=== PATIENT | male | born 1940 | race Caucasian/White ===

== ENCOUNTER → 2017-01-08 | Outpatient (CLI) | payer OTHER ==
[~2017-01-08] MED LIST: ASPIR LOW81 MG PO; B12,B-12,B 12500 MC1 PO; CIPROFLOXACIN500 MG PO; FLAGYL500 MG PO; GLUCOPHAGE1000 MG PO; HYDROCODONE BIT1 T11 PO; IBU800 MG PO; IRON325 M1 PO; LIPITOR40 MG PO; NATURE'S BLEND F1 MG PO; PAXIL20 M1 PO; PLAVIX75 M1 PO; ULTRAM50 MG PO; ZOCOR40 MG PO; ZOVIRAX400 MG PO
== END | disposition home or self-care (01) ==
LOC: RAD 15:54
DX: M16.12 Unilateral primary osteoarthritis, left hip (principal); M25.552 Pain in left hip; M54.5 Low back pain

== ENCOUNTER → 2017-04-26 | Outpatient (CLI) | payer OTHER | END | disposition home or self-care (01) | LOC: ORTHO 02:16 | DX: M47.896 Other spondylosis, lumbar region (principal); M43.16 Spondylolisthesis, lumbar region ==

== ENCOUNTER → 2017-06-04 | Outpatient (CLI) | payer OTHER | END | disposition home or self-care (01) | LOC: MRI 14:59 | DX: M48.06 Spinal stenosis, lumbar region (principal); M51.27 Other intervertebral disc displacement, lumbosacral region ==

== ENCOUNTER → 2017-11-27 | Outpatient (CLI) | payer OTHER | END | disposition home or self-care (01) | LOC: RAD 15:19 | DX: I51.7 Cardiomegaly (principal); M54.9 Dorsalgia, unspecified ==

== ENCOUNTER → 2017-12-11 | Outpatient (CLI) | payer OTHER | END | disposition home or self-care (01) | LOC: CARD 12-07 08:30 | DX: I07.1 Rheumatic tricuspid insufficiency (principal) ==

== ENCOUNTER → 2018-10-31 | Outpatient (CLI) | payer OTHER | END | disposition home or self-care (01) | LOC: RAD 16:02 | DX: I51.7 Cardiomegaly (principal) ==

== ENCOUNTER 2022-03-08 19:49 | Emergency (ER) | payer OTHER ==
[~2022-03-08] VITALS: Wt 93.4 kg
[~2022-03-08 19:49] MED LIST changes: +JARDIANCE10 MG PO; +LISINOPRIL10 M1 PO; +METOPROLOL TART50 M1 PO; +VITAMIN D350 MCG PO; +XARE20MG PO
[2022-03-08 20:09] LABS: BASO % 0.6 % (0.0-1.0); EOS # 0.2 10*3/uL (0.0-0.4); EOS % 3.6 % (1.0-4.0); HEMATOCRIT 38.6 % (42.0-52.0); LYMPH % 30.4 % (27.0-41.0); MEAN CELL VOLUME 93.7 fl (80.0-94.0); MEAN CORPUSCULAR HGB 31.6 pg (27.0-31.0); MEAN CORPUSCULAR HGB CONC 33.7 g/dl (33.0-37.0); MEAN PLATELET VOLUME 9.9 fl (9.6-12.3); MONO # 0.6 10*3/uL (0.1-1.0); MONO % 9.2 % (3.0-9.0); NEUT # 3.7 10*3/uL (2.3-7.9); NEUT % 55.5 % (47.0-73.0); PLATELET COUNT AUTOMATED 235 10*3/uL (130-400); RED BLOOD COUNT 4.12 10*6/uL (4.50-5.90); RED CELL DISTRI WIDTH 14.7 % (0-14.5); WHITE BLOOD COUNT 6.7 10*3/uL (4.8-10.8)
[2022-03-08 20:22] LABS: CREATININE 1.82 mg/dL (0.70-1.30); POTASSIUM 5.3 mmol/L (3.5-5.1)
[2022-03-08 22:01] LABS: BILIRUBIN Negative (Negative); BLOOD Negative (Negative); CLARITY Clear (Clear); COLOR Yellow (Yellow); GLUCOSE 2+ (Negative); KETONE Negative (Negative); LEUKO ESTERASE Negative (Negative); NITRITE Negative (Negative); SPECIFIC GRAVITY 1.015 (1.001-1.030); UROBILINOGEN 0.2 E.U./dl (0.0-1.0)
[2022-03-08 22:36] LABS: BACTERIA TRACE; RBC 0-2 rbc/hpf (0-2)
== END 2022-03-09 02:33 ==
LOC: ED 19:49
PROVIDERS: Internal Medicine
DX: N17.9 Acute kidney failure, unspecified (principal)

== ENCOUNTER 2022-12-16 05:55 | Emergency (ER) | payer MEDICARE ==
[~2022-12-16] VITALS: Wt 87.1 kg
[2022-12-16 06:28] LABS: BASO % 0.4 % (0.0-1.0); EOS % 0.4 % (1.0-4.0); HEMATOCRIT 42.6 % (42.0-52.0); LYMPH # 1.6 10*3/uL (1.3-4.4); LYMPH % 17.4 % (27.0-41.0); MEAN CELL VOLUME 91.2 fl (80.0-94.0); MEAN CORPUSCULAR HGB 30.6 pg (27.0-31.0); MEAN CORPUSCULAR HGB CONC 33.6 g/dl (33.0-37.0); MEAN PLATELET VOLUME 9.7 fl (9.6-12.3); MONO # 0.8 10*3/uL (0.1-1.0); MONO % 8.5 % (3.0-9.0); NEUT # 6.5 10*3/uL (2.3-7.9); PLATELET COUNT AUTOMATED 221 10*3/uL (130-400); RED BLOOD COUNT 4.67 10*6/uL (4.50-5.90); RED CELL DISTRI WIDTH 13.5 % (0-14.5); WHITE BLOOD COUNT 8.9 10*3/uL (4.8-10.8)
[2022-12-16 06:51] LABS: BILIRUBIN Negative (Negative); BLOOD Negative (Negative); CLARITY Clear (Clear); COLOR Yellow (Yellow); GLUCOSE 3+ (Negative); KETONE Trace (Negative); LEUKO ESTERASE Negative (Negative); NITRITE Negative (Negative); SPECIFIC GRAVITY >= 1.030 (1.001-1.030); UROBILINOGEN 0.2 E.U./dl (0.0-1.0)
[2022-12-16 06:53] LABS: ALKALINE PHOSPHATASE 63 U/L (46-116); BUN 29 mg/dl (9-23); CHLORIDE 101 mmol/L (98-107); POTASSIUM 3.9 mmol/L (3.4-5.1); TOTAL PROTEIN 6.8 gm/dL (6.0-8.0)
[2022-12-16 07:20] LABS: SGPT/ALT < 7 U/L (10-49)
[2022-12-16] MEDS ORDERED: VIBRA-TAB100 MG PO (08:15)
[2022-12-16 08:49] LABS: BACTERIA TRACE; MUCOUS 1+; WBC 0-2 wbc/hpf (0-5)
== END 2022-12-16 09:38 ==
LOC: ED 05:55
PROVIDERS: Emergency Medicine
DX: J18.9 Pneumonia, unspecified organism (principal); R41.0 Disorientation, unspecified; E11.9 Type 2 diabetes mellitus without complications; I10 Essential (primary) hypertension; I48.91 Unspecified atrial fibrillation; M19.90 Unspecified osteoarthritis, unspecified site; F32.A Depression, unspecified; F41.9 Anxiety disorder, unspecified; F19.921 Other psychoactive substance use, unspecified with intoxication with delirium; Z86.16 Personal history of COVID-19; Z98.890 Other specified postprocedural states

== ENCOUNTER 2024-06-22 07:49 | Emergency (ER) | payer MEDICARE ==
[~2024-06-22] VITALS: Ht 172.7 cm; Wt 90.7 kg
[~2024-06-22 07:49] MED LIST changes: +VIBRA-TAB100 MG PO
[2024-06-22 08:29] LABS: BASO % 0.3 % (0.0-1.0); EOS # 0.2 10*3/uL (0.0-0.4); EOS % 2.4 % (1.0-4.0); HEMATOCRIT 43.7 % (42.0-52.0); LYMPH # 1.5 10*3/uL (1.3-4.4); LYMPH % 24.3 % (27.0-41.0); MEAN CELL VOLUME 97.5 fl (80.0-94.0); MEAN CORPUSCULAR HGB 31.5 pg (27.0-31.0); MEAN CORPUSCULAR HGB CONC 32.3 g/dl (33.0-37.0); MEAN PLATELET VOLUME 9.9 fl (9.6-12.3); MONO # 0.6 10*3/uL (0.1-1.0); MONO % 9.3 % (3.0-9.0); NEUT # 3.9 10*3/uL (2.3-7.9); NEUT % 63.2 % (47.0-73.0); PLATELET COUNT AUTOMATED 190 10*3/uL (130-400); RED BLOOD COUNT 4.48 10*6/uL (4.50-5.90); RED CELL DISTRI WIDTH 13.5 % (0-14.5); WHITE BLOOD COUNT 6.2 10*3/uL (4.8-10.8)
[2024-06-22 08:39] LABS: ACT PARTIAL THROMBO TIME 31.5 SECONDS (20.0-32.1)
[2024-06-22 08:52] LABS: ALKALINE PHOSPHATASE 56 U/L (46-116); BUN 16 mg/dl (9-23); CHLORIDE 106 mmol/L (98-107); POTASSIUM 4.1 mmol/L (3.4-5.1); SGPT/ALT 9 U/L (5-49); TOTAL PROTEIN 6.5 gm/dL (6.0-8.0)
[2024-06-22 09:09] LABS: BILIRUBIN Negative (Negative); BLOOD Negative (Negative); CLARITY Clear (Clear); COLOR Yellow (Yellow); GLUCOSE 3+ (Negative); KETONE Trace (Negative); LEUKO ESTERASE Negative (Negative); NITRITE Negative (Negative); SPECIFIC GRAVITY >= 1.030 (1.001-1.030)
[2024-06-22 09:16] LABS: URINE AMPHETAMINES Negative (1000ng/ml); URINE BARBITURATES Negative (200ng/ml); URINE BENZODIAZEPINES Negative (200ng/ml); URINE CANNABINOIDS (THC) Negative (50ng/ml); URINE COCAINE Negative (300ng/ml); URINE METHADONE Negative (300ng/ml); URINE OPIATES Negative (300ng/ml); URINE PHENCYCLIDINE Negative (25ng/ml)
[2024-06-22 09:20] LABS: BACTERIA TRACE; MUCOUS TRACE
== END 2024-06-22 13:56 ==
LOC: ED 07:49
PROVIDERS: Internal Medicine
DX: S09.8XXA Other specified injuries of head, initial encounter (principal); R22.0 Localized swelling, mass and lump, head; E11.9 Type 2 diabetes mellitus without complications; I10 Essential (primary) hypertension; F32.A Depression, unspecified; F41.9 Anxiety disorder, unspecified; E78.00 Pure hypercholesterolemia, unspecified; I48.91 Unspecified atrial fibrillation; M19.90 Unspecified osteoarthritis, unspecified site; Z98.890 Other specified postprocedural states; Z79.899 Other long term (current) drug therapy; W19.XXXA Unspecified fall, initial encounter; Y93.89 Activity, other specified; Y92.89 Other specified places as the place of occurrence of the external cause; Y99.8 Other external cause status

== ENCOUNTER 2024-07-11 23:52 | Emergency (ER) | payer MEDICARE ==
[~2024-07-11] VITALS: Ht 172.7 cm; Wt 96.2 kg
[~2024-07-11 23:52] MED LIST changes: -METFORMIN HYDR500 MG PO; -MIRALAX POWDER17 G1 PO; -Meclizine25 MG PO; -NAMENDA-14 PO; -PAIN RELIEVER650 MG PO; -VISTARIL25 MG PO; -ZOLOFT50 MG PO
[2024-07-12] MEDS ORDERED: PAIN RELIEVER650 MG PO (00:16)
[2024-07-12] MEDS ORDERED: Meclizine25 MG PO (00:19)
[2024-07-12] MEDS ORDERED: METFORMIN HYDR500 MG PO (00:20)
[2024-07-12] MEDS ORDERED: MIRALAX POWDER17 G1 PO (00:21)
[2024-07-12] MEDS ORDERED: IBU800 MG PO (00:23)
[2024-07-12] MEDS ORDERED: NAMENDA-14 PO (00:25)
[2024-07-12] MEDS ORDERED: VISTARIL25 MG PO (00:26)
[2024-07-12] MEDS ORDERED: ZOLOFT50 MG PO (00:28)
== END 2024-07-12 06:51 | disposition home or self-care (01) ==
LOC: ED 23:52
DX: R51.9 Headache, unspecified (principal); F03.90 Unspecified dementia, unspecified severity, without behavioral disturbance, psychotic disturbance, mood disturbance, and anxiety; I10 Essential (primary) hypertension; F32.A Depression, unspecified; E11.9 Type 2 diabetes mellitus without complications; F41.9 Anxiety disorder, unspecified; E78.00 Pure hypercholesterolemia, unspecified; I48.91 Unspecified atrial fibrillation; M19.90 Unspecified osteoarthritis, unspecified site; Z98.890 Other specified postprocedural states; W19.XXXA Unspecified fall, initial encounter

== ENCOUNTER → 2024-07-11 | Outpatient (CLI) | payer MEDICARE ==
[~2024-07-11] MED LIST changes: +METFORMIN HYDR500 MG PO; +MIRALAX POWDER17 G1 PO; +Meclizine25 MG PO; +NAMENDA-14 PO; +PAIN RELIEVER650 MG PO; +VISTARIL25 MG PO; +ZOLOFT50 MG PO
== END | disposition home or self-care (01) ==
LOC: MRI 01:35
PROVIDERS: ATTEND Family Medicine
DX: C71.1 Malignant neoplasm of frontal lobe (principal); R90.82 White matter disease, unspecified

== ENCOUNTER 2024-10-04 01:32 | Emergency (ER) | payer MEDICARE ==
[~2024-10-04] VITALS: Ht 172.7 cm; Wt 90.8 kg
[~2024-10-04 01:32] MED LIST changes: +METFORMIN HYDR500 MG PO; +MIRALAX POWDER17 G1 PO; +Meclizine25 MG PO; +NAMENDA-14 PO; +PAIN RELIEVER650 MG PO; +VISTARIL25 MG PO; +ZOLOFT50 MG PO
[2024-10-04] MEDS ORDERED: Acetaminophen/Oxycodone 5 MG/325 MG TABLET PO ONE (02:00)
[2024-10-04] MEDS ORDERED: METFORMIN HYD1000 MG PO (02:00)
[2024-10-04] MEDS ORDERED: MIRALAX119 GM PO (02:01)
[2024-10-04 03:16] LABS: BILIRUBIN Negative (Negative); BLOOD Negative (Negative); CLARITY Clear (Clear); COLOR Yellow (Yellow); GLUCOSE 3+ (Negative); KETONE Negative (Negative); LEUKO ESTERASE Negative (Negative); NITRITE Negative (Negative); PH 7.5 (4.5-8.0); SPECIFIC GRAVITY >= 1.030 (1.001-1.030)
[2024-10-04 03:17] LABS: BASO % 0.4 % (0.0-1.0); EOS # 0.1 10*3/uL (0.0-0.4); EOS % 1.6 % (1.0-4.0); MEAN CELL VOLUME 97.4 fl (80.0-94.0); MEAN CORPUSCULAR HGB 31.8 pg (27.0-31.0); MEAN CORPUSCULAR HGB CONC 32.6 g/dl (33.0-37.0); MEAN PLATELET VOLUME 10.2 fl (9.6-12.3); MONO # 0.7 10*3/uL (0.1-1.0); MONO % 8.2 % (3.0-9.0); NEUT # 5.2 10*3/uL (2.3-7.9); NEUT % 65.7 % (47.0-73.0); PLATELET COUNT AUTOMATED 196 10*3/uL (130-400); RED BLOOD COUNT 4.31 10*6/uL (4.50-5.90); RED CELL DISTRI WIDTH 13.7 % (0-14.5)
[2024-10-04 03:49] LABS: EPITHELIAL CELLS 0-2; RBC 0-2 rbc/hpf (0-2); WBC 0-2 wbc/hpf (0-5)
[2024-10-04 03:50] LABS: MUCOUS TRACE
[2024-10-04 03:52] LABS: BUN 21 mg/dl (9-23); CHLORIDE 105 mmol/L (98-107); POTASSIUM 4.2 mmol/L (3.4-5.1)
[2024-10-04] MEDS ORDERED: PERCOCET 5-3251 EACH PO (04:11)
== END 2024-10-04 04:57 | disposition home or self-care (01) ==
LOC: ED 01:32
PROVIDERS: Internal Medicine
DX: S22.31XA Fracture of one rib, right side, initial encounter for closed fracture (principal); S40.021A Contusion of right upper arm, initial encounter; E11.9 Type 2 diabetes mellitus without complications; I10 Essential (primary) hypertension; F32.A Depression, unspecified; F41.9 Anxiety disorder, unspecified; E78.00 Pure hypercholesterolemia, unspecified; I48.91 Unspecified atrial fibrillation; M19.90 Unspecified osteoarthritis, unspecified site; Z98.890 Other specified postprocedural states; X58.XXXA Exposure to other specified factors, initial encounter; Y93.89 Activity, other specified; Y92.129 Unspecified place in nursing home as the place of occurrence of the external cause; Y99.8 Other external cause status

== ENCOUNTER 2024-10-06 13:44 | Emergency (ER) | payer MEDICARE ==
[~2024-10-06] VITALS: Ht 172.7 cm; Wt 94.3 kg
[~2024-10-06 13:44] MED LIST changes: +METFORMIN HYD1000 MG PO; +MIRALAX119 GM PO; +PERCOCET 5-3251 EACH PO
== END 2024-10-06 16:23 | disposition home or self-care (01) ==
LOC: ED 13:44
DX: S40.021A Contusion of right upper arm, initial encounter (principal); R07.81 Pleurodynia; M79.601 Pain in right arm; I48.91 Unspecified atrial fibrillation; I10 Essential (primary) hypertension; E78.5 Hyperlipidemia, unspecified; E11.9 Type 2 diabetes mellitus without complications; F32.A Depression, unspecified; F41.9 Anxiety disorder, unspecified; Z79.84 Long term (current) use of oral hypoglycemic drugs; Z79.899 Other long term (current) drug therapy; Z98.890 Other specified postprocedural states; W18.39XA Other fall on same level, initial encounter; Y93.89 Activity, other specified; Y92.89 Other specified places as the place of occurrence of the external cause; Y99.8 Other external cause status